=== PATIENT | male | born 1990 | race African-American/Black ===

== ENCOUNTER 2021-12-24 10:26 | Emergency (ER) | payer SELFPAY ==
[~2021-12-24] VITALS: Ht 170.2 cm; Wt 73.4 kg
[2021-12-24 10:48] VITALS: BP 135/70
--- NOTE | 2021-12-24 10:57 | PHYS DOC ---
Past History Past Surgical History: No Surgical History (NISHA ALVARADO APRN) General Adult EDM: Chief Complaint: SHOULDER INJURY HPI: HPI: Patient is a 31-year-old male who presents to the emergency department for left shoulder pain that occurred yesterday after he was trying to break down the door. He reports pain is worse with movement. He rates it 8 on 10. No treatment prior to arrival. He denies any decreased sensation to his extremity. (NISHA ALVARADO APRN) Review of Systems: Review of Systems: Musculoskeletal: See HPI Integument: Denies rash Neurologic: See HPI (NISHA ALVARADO APRN) Allergies: Allergies: Allergies Coded Allergies Type Severity Reaction Last Updated Verified No Known Drug Allergies 12/24/21 No (NISHA ALVARADO APRN) Physical Exam: PE: Constitutional: Well developed, well nourished, no acute distress, non-toxic appearance. [] HENT: Normocephalic, atraumatic, bilateral external ears normal, oropharynx moist, no oral exudates, nose normal. [] Eyes: PERRL, EOMI, conjunctiva normal, no discharge. [] Neck: Normal range of motion, no tenderness, supple, no stridor. [] Cardiovascular: Normal peripheral perfusion Lungs & Thorax: Normal work of breathing, no tachypnea Abdomen: Soft and flat Skin: Warm, dry, no erythema, no rash. [] Back: No tenderness, normal range of motion Extremities: No tenderness, no cyanosis, no clubbing, ROM intact, no edema. [] Left shoulder: Range of motion intact, neuro intact, no obvious deformity, no crepitus, no pain with palpation of clavicle, pain with palpation of acromion Neurologic: Alert and oriented X 3, normal motor function, normal sensory function, no focal deficits noted. [] Psychologic: Affect normal, judgement normal, mood normal. [] (NISHA ALVARADO APRN) Current Patient Data: Vital Signs: Vital Signs Date Time Temp Pulse Resp B/P (MAP) Pulse Ox O2 Delivery O2 Flow Rate FiO2 12/24/21 10:48 97.8 82 20 135/70 (91) 96 Room Air (NISHA ALVARADO APRN) EKG: EKG: [] (NISHA ALVARADO APRN) Radiology/Procedures: Radiology/Procedures: []PROCEDURE: SHOULDER 2+V LEFT Exam: XR SHOULDER_LEFT 2+ VIEWS History: Shoulder injury and pain. Comparison: None. Findings: Osseous mineralization is normal. No acute fracture or dislocation. No significant degenerative changes. Soft tissues are unremarkable. Impression: 1. Unremarkable left shoulder. Electronically signed by: Yonatan Ruby MD (12/24/2021 11:00 AM) [id number] DICTATED AND SIGNED BY: YONATAN RUBY MD DATE: 12/24/21 1058 CC: EMERGENCY,DEPARTMENT; NISHA ALVARADO APRN; PCP,NO ~ (NISHA ALVARADO APRN) Heart Score: C/O Chest Pain: N/A Risk Factors: Risk Factors: DM, Current or recent (<one month) smoker, HTN, HLP, family hi story of CAD, obesity. Risk Scores: Score 0 - 3: 2.5% MACE over next 6 weeks - Discharge Home Score 4 - 6: 20.3% MACE over next 6 weeks - Admit for Clinical Observation Score 7 - 10: 72.7% MACE over next 6 weeks - Early Invasive Strategies (NISHA ALVARADO APRN) Course & Med Decision Making: Course & Med Decision Making Pertinent Labs and Imaging studies reviewed. (See chart for details) [] Patient presents to the emergency department for left shoulder pain after trying to break down the door. X-rays were obtained in the emergency department that showed no acute findings. Patient's shoulder was placed in a sling for comfort. He is neurovascularly intact. Patient advised to take anti- inflammatory medications and apply ice. I discussed with patient all findings and diagnostic testing as well as the need to follow-up with PCP for further evaluation and treatment or return to the ER if any new or worsening symptoms. Strict return precautions were also discussed at length. Patient voiced understanding and agreement with the plan. Patient is hemodynamically stable at the time of disposition. (NISHA ALVARADO APRN) Dragon Disclaimer: Dragon Disclaimer: This electronic medical record was generated, in whole or in part, using a voice recognition dictation system. (NISHA ALVARADO APRN) Attending Co-Sign The patient was seen and interviewed as well as examined at the bedside. The chart was reviewed. The case was discussed. Agree with the plan of care. (JENNY GARCIA DO) Departure Departure: Impression: Primary Impression: Shoulder contusion Qualified Codes: S40.012A - Contusion of left shoulder, initial encounter Disposition: HOME / SELF CARE / HOMELESS Condition: GOOD Referrals: [facility] (PCP) Patient Instructions: Shoulder Sprain Additional Instructions: You are seen in the emergency department today for shoulder pain following an injury. An x-ray was performed that showed no acute findings. Your shoulder was placed in a sling for comfort and support. Take Tylenol and ibuprofen at home for pain. You can apply ice to any sore areas. Follow-up with your primary care provider within a week if your pain continues. Return to the emergency department if you develop worsening of your pain, decreased range of motion or decreased sensation in your extremity. NISHA ALVARADO APRN December 24, 2021 10:57 JENNY GARCIA DO December 25, 2021 06:24
--- NOTE | 2021-12-24 11:02 | RAD ---
Exam: XR SHOULDER_LEFT 2+ VIEWS History: Shoulder injury and pain. Comparison: None. Findings: Osseous mineralization is normal. No acute fracture or dislocation. No significant degenerative mcleod es. Soft tissues are unremarkable. Impression: 1. Unremarkable left shoulder. Electronically signed by: Yonatan Ruby MD (12/24/2021 11:00 AM) [id number]
[2021-12-24] MEDS ORDERED: HYDROcodone/APAP 5/325MG 1 TAB TABLET PO ONE (11:15)
== END 2021-12-24 11:45 | disposition home or self-care (01) ==
LOC: ER 10:26
DX: S40.012A Contusion of left shoulder, initial encounter (principal); W22.8XXA Striking against or struck by other objects, initial encounter; Y93.89 Activity, other specified; Y92.89 Other specified places as the place of occurrence of the external cause; Y99.8 Other external cause status
CPT/HCPCS: 29240; 73030; 99283